=== PATIENT | female | born 2005 | race Caucasian/White ===

== ENCOUNTER 2025-01-13 10:23 | Outpatient (CLI) | payer OTHER | END 2025-01-13 10:24 | disposition home or self-care (01) | LOC: CSHULT 10:23 | PROVIDERS: ATTEND Urology | DX: N20.2 Calculus of kidney with calculus of ureter (principal); A41.01 Sepsis due to Methicillin susceptible Staphylococcus aureus; N28.1 Cyst of kidney, acquired; N15.1 Renal and perinephric abscess | CPT/HCPCS: 74018; 76770 ==